=== PATIENT | male | born 1995 | race Caucasian/White ===

== ENCOUNTER 2017-06-03 07:17 | Emergency (ER) | payer SELFPAY ==
[2017-06-03 07:52] VITALS: BP 129/82; PULSE 65; RESP 18; TEMP 97.8; O2SAT 99
[2017-06-03] MEDS ORDERED: Naproxen 550 mg Tab PO STA (07:52)
[2017-06-03] MEDS ORDERED: Tmp-Smz 800 mg-160 mg DS Tab PO STA (07:52)
--- NOTE | 2017-06-03 07:55 | C.PDOC ---
History Of Present Illness 21 y/o male presents to the ED c/o left big toe pain. The patient states that yesterday he had an ingrown toe nail that he cut a part of and he noticed redness and swelling began shortly after. The patient denies trauma. Time Seen by Provider: 06/03/17 07:31 Chief Complaint (Nursing): Lower Extremity Problem/Injury History Per: Patient History/Exam Limitations: no limitations Onset/Duration Of Symptoms: Days Current Symptoms Are (Timing): Still Present Additional History Per: Patient Past Medical History Reviewed: Historical Data, Nursing Documentation, Vital Signs Vital Signs: Last Vital Signs Temp 97.8 F 06/03/17 07:27 Pulse 65 06/03/17 07:27 Resp 18 06/03/17 07:27 BP 129/82 06/03/17 07:27 Pulse Ox 99 06/03/17 08:38 - Medical History PMH: Asthma Surgical History: No Surg Hx Family History: States: No Known Family Hx - Social History Hx Tobacco Use: No Hx Alcohol Use: Yes Hx Substance Use: No - Immunization History Hx Tetanus Toxoid Vaccination: No Hx Influenza Vaccination: No Hx Pneumococcal Vaccination: No Review Of Systems Except As Marked, All Systems Reviewed And Found Negative. Constitutional: Negative for: Fever Musculoskeletal: Positive for: Foot Pain (left big toe pain ) Skin: Negative for: Lesions Physical Exam - Physical Exam Appears: Non-toxic, No Acute Distress, Other (comfortable ) Skin: Warm, Dry Head: Normacephalic Eye(s): bilateral: Normal Inspection Oral Mucosa: Moist Neck: Supple Chest: Symmetrical Cardiovascular: Rhythm Regular Respiratory: Normal Breath Sounds Back: Normal Inspection Extremity: Capillary Refill (2<sec.), No Deformity, Swelling ( mildly and tender to palpate and no paronychia), Other (first toe on medial aspect erythematous ) Neurological/Psych: Oriented x3, Normal Speech, Normal Sensation, Other ( ambulating normally ) Gait: Steady ED Course And Treatment O2 Sat by Pulse Oximetry: 99 (RA) Progress Note: Upon reassessment, the patient is ambulating with no limp. 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 Disposition Counseled Patient/Family Regarding: Diagnosis, Need For Followup, Rx Given - Disposition Referrals: Podiatry Clinic [Outside] Disposition: HOME/ ROUTINE Disposition Time: 08:05 Condition: STABLE Additional Instructions: FOLLOW UP WITH PODIATRY WITHIN 1 WEEK USE MEDICATIONS DIRECTED APPLY WARM COMPRESSES TO AREA RETURN TO ER IF SYMPTOMS WORSEN Prescriptions: Cephalexin [Keflex] 500 mg PO BID #14 capsule Naproxen 375 mg PO BID PRN #20 tablet PRN Reason: pain Sulfamethoxazole/Trimethoprim [Bactrim DS 800 mg-160 mg] 1 tab PO BID #14 tab Instructions: Cellulitis (ED) Forms: [employer] (Estonian) Print Language: BELGIAN - POA Present On Arrival: None - Clinical Impression Clinical Impression: Cellulitis, toe, Ingrown nail - Scribe Statement The provider has reviewed the documentation as recorded by the Scribe Coleen Salazar
[2017-06-03] MEDS ORDERED: Naproxen 275 mg Tab PO ONE (08:07)
[2017-06-03] MEDS ORDERED: Tmp-Smz 800 mg-160 mg DS Tab ONE (08:07)
== END 2017-06-03 08:11 | disposition home or self-care (01) ==
LOC: C.ER 07:17
DX: L03.032 Cellulitis of left toe (principal); L60.0 Ingrowing nail